=== PATIENT | female | born 1995 | race Asian ===

== ENCOUNTER 2016-08-31 12:39 | Emergency (ER) | payer MEDICAID ==
[~2016-08-31] VITALS: Ht 167.6 cm; Wt 65.9 kg
[~2016-08-31 12:39] MED LIST: AMOXICILLIN 50500 MG PO; FLEXERIL 1010 MG/TAB PO; MACROBID 1100 MG/CAP PO; MOTRIN 800800 MG/TAB PO; NORCO 325 MG-51 TAB PO; ULTRAM 50MG TAB50 MG PO; ZOFRAN ODT4 MG PO
[2016-08-31 12:40] VITALS: BP 100/81; PULSE 94; TEMP 97.8
== END 2016-08-31 13:08 | disposition home or self-care (01) ==
LOC: COL.ER 12:39
DX: M67.432 Ganglion, left wrist (principal)

== ENCOUNTER 2016-09-24 08:30 | Emergency (ER) | payer MEDICAID ==
[~2016-09-24] VITALS: Ht 160 cm; Wt 63.6 kg
[2016-09-24 08:39] VITALS: TEMP 98.2
[2016-09-24] MEDS ORDERED: MIRENA52 MG IY (08:42)
[2016-09-24] MEDS ORDERED: PHENERGAN 25 TA25 MG PO (08:58)
[2016-09-24] MEDS ORDERED: ULTRAM 50MG TAB50 MG PO (08:59)
[2016-09-24 09:16] LABS: BASO % 0.3 % (0.0-2.0); EOS # 0.2 (0.0-0.7); EOS % 1.8 % (0-4.0); GRAN # 8.1 (1.4-6.5); GRAN % 82.5 % (42.2-75.2); HEMATOCRIT 43.3 % (35.0-45.0); HEMOGLOBIN 14.7 g/dl (12.0-15.0); LYMPH % 10.1 % (20.0-51.0); MEAN CELL VOLUME 96 fl (80.0-95.0); MEAN CORPUSCULAR HEMOGLOBIN 33 pg (26.0-32.0); MEAN CORPUSCULAR HGB CONC 34 g/dl (33.0-37.0); MEAN PLATELET VOLUME 11.4 fl (7.4-10.4); MONO # 0.5 (0.1-0.6); PLATELET COUNT 236 K/mm3 (130-400); RED BLOOD COUNT 4.51 M/mm3 (4.10-5.30); REDCELL DISTRIBUTION WIDTH-CV 11.7 % (11.5-14.5); WHITE BLOOD COUNT 9.9 K/mm3 (4.8-10.8)
[2016-09-24 09:25] LABS: ALBUMIN 4.7 gm/dL (3.5-5.0); CALCIUM 9.6 mg/dL (8.4-10.2); CREATININE, serum 0.55 mg/dL (0.52-1.25); TOTAL PROTEIN 9.1 gm/dL (6.4-8.2)
[2016-09-24 09:55] VITALS: BP 106/64; PULSE 87
== END 2016-09-24 09:59 | disposition home or self-care (01) ==
LOC: COL.ER 08:30
PROVIDERS: Emergency Medicine
DX: R10.13 Epigastric pain (principal); R11.10 Vomiting, unspecified; J06.9 Acute upper respiratory infection, unspecified
CPT/HCPCS: C9113; J1170; J1885; J2765; J7030

== ENCOUNTER 2017-10-07 12:09 | Emergency (ER) | payer MEDICAID ==
[~2017-10-07] VITALS: Ht 160 cm; Wt 76.8 kg
[~2017-10-07 12:09] MED LIST changes: +MIRENA52 MG IY; +PHENERGAN 25 TA25 MG PO
[2017-10-07 12:21] VITALS: BP 124/76; TEMP 99.1
[2017-10-07] MEDS ORDERED: AMOXICILLIN 50500 MG PO (14:01)
[2017-10-07 14:13] VITALS: PULSE 88
== END 2017-10-07 14:16 | disposition home or self-care (01) ==
LOC: COL.ER 12:09
DX: J02.9 Acute pharyngitis, unspecified (principal); Z90.49 Acquired absence of other specified parts of digestive tract

== ENCOUNTER → 2018-01-05 | Emergency (ER) | payer MEDICAID ==
[~2018-01-05] VITALS: Ht 160 cm; Wt 76.4 kg
[2018-01-05 06:57] VITALS: BP 114/73
[2018-01-05 08:24] VITALS: PULSE 91; TEMP 99.7
== END ==
LOC: COL.ER 06:50
DX: G43.909 Migraine, unspecified, not intractable, without status migrainosus (principal); Z90.49 Acquired absence of other specified parts of digestive tract
CPT/HCPCS: J1200; J1885; J2550

== ENCOUNTER 2019-02-28 21:55 | Emergency (ER) | payer MEDICAID ==
[~2019-02-28] VITALS: Ht 160 cm; Wt 77.3 kg
[2019-02-28 21:59] VITALS: BP 118/74; TEMP 97.3
[2019-02-28 22:38] LABS: COLLECTION METHOD CLEAN CATCH
[2019-02-28 22:44] LABS: MUCOUS Present /lpf; PH 7 (5-8); URINE APPEARANCE Clear; URINE BACTERIA None Seen /hpf; URINE BILIRUBIN Negative (NEGATIVE); URINE BLOOD Negative (NEGATIVE); URINE COLOR Yellow; URINE GLUCOSE Negative (NEGATIVE); URINE KETONE Negative (NEGATIVE); URINE LEUKOCYTE ESTERASE Negative (NEGATIVE); URINE NITRATE Negative (NEGATIVE); URINE PROTEIN(semi-quant) Negative (NEGATIVE); URINE RBC 0-2 /hpf; URINE UROBILINOGEN Negative (NEGATIVE)
[2019-02-28 23:02] LABS: BASO % 0.5 % (0.0-2.0); EOS # 0.1 (0.0-0.7); EOS % 2.1 % (0-4.0); GRAN % 45.2 % (42.2-75.2); LYMPH # 2.9 (1.2-3.4); LYMPH % 43.8 % (20.0-51.0); MEAN CELL VOLUME 97 fl (80.0-100.0); MEAN CORPUSCULAR HEMOGLOBIN 33 pg (27.0-31.0); MEAN CORPUSCULAR HGB CONC 34 g/dl (33.0-37.0); MEAN PLATELET VOLUME 12.6 fl (7.4-10.4); MONO # 0.5 (0.1-0.6); MONO % 8.2 % (1.7-9.3); PLATELET COUNT 64 K/mm3 (130-400); RED BLOOD COUNT 3.66 M/mm3 (4.10-5.30); REDCELL DISTRIBUTION WIDTH-CV 11.7 % (11.5-14.5)
[2019-02-28 23:05] LABS: HEMATOCRIT 35.5 % (37.0-47.0)
[2019-02-28 23:15] LABS: ALBUMIN 3.9 gm/dL (3.5-5.0); BILIRUBIN,TOTAL 0.4 mg/dL (0.0-1.0); C-REACTIVE PROTEIN 0.6 mg/dL (0.0-0.9); CALCIUM 8.9 mg/dL (8.4-10.2); CREATININE, serum 0.55 (0.52-1.25); POTASSIUM 4.5 mmol/L (3.4-5.0); TOTAL PROTEIN 7.8 gm/dL (6.4-8.2)
[2019-03-01 00:25] VITALS: PULSE 77
== END 2019-03-01 00:25 | disposition home or self-care (01) ==
LOC: COL.ER 21:55
PROVIDERS: Family Medicine
DX: R10.84 Generalized abdominal pain (principal); Z90.49 Acquired absence of other specified parts of digestive tract
CPT/HCPCS: J1885; J2405; J7030

== ENCOUNTER 2019-06-07 21:19 | Emergency (ER) | payer MEDICAID ==
[~2019-06-07] VITALS: Ht 160 cm; Wt 77.3 kg
[2019-06-07 21:31] VITALS: TEMP 97.6
[2019-06-07 22:14] LABS: BASO % 0.4 % (0.0-2.0); EOS # 0.2 (0.0-0.7); GRAN # 5.6 (1.4-6.5); GRAN % 56.9 % (42.2-75.2); HEMATOCRIT 40.7 % (37.0-47.0); HEMOGLOBIN 13.8 g/dl (12.5-16.0); LYMPH # 3.2 (1.2-3.4); LYMPH % 33.2 % (20.0-51.0); MEAN CELL VOLUME 96 fl (80.0-100.0); MEAN CORPUSCULAR HEMOGLOBIN 33 pg (27.0-31.0); MEAN CORPUSCULAR HGB CONC 34 g/dl (33.0-37.0); MEAN PLATELET VOLUME 11.6 fl (7.4-10.4); MONO # 0.7 (0.1-0.6); MONO % 7.2 % (1.7-9.3); PLATELET COUNT 233 K/mm3 (130-400); RED BLOOD COUNT 4.22 M/mm3 (4.10-5.30); REDCELL DISTRIBUTION WIDTH-CV 11.8 % (11.5-14.5)
[2019-06-07 22:27] LABS: ALANINE AMINOTRANSFERASE 45 U/L (9-52); ALBUMIN 4.9 gm/dL (3.5-5.0); ALKALINE PHOSPHATASE 54 U/L (50-136); ANION GAP 13 mmol/L (7-16); AST,SGOT 34 U/L (15-37); BILIRUBIN,TOTAL 0.6 mg/dL (0.0-1.0); BLOOD UREA NITROGEN 14 mg/dL (7-17); CALCIUM 9.6 mg/dL (8.4-10.2); CARBON DIOXIDE 26 mmol/L (22-30); CHLORIDE 102 mmol/L (98-107); CREATININE, serum 0.55 (0.52-1.25); GLUCOSE 86 mg/dL (74-106); LIPASE 78 U/L (23-300); POTASSIUM 3.5 mmol/L (3.4-5.0); SODIUM 141 mmol/L (137-145); TOTAL PROTEIN 9.1 gm/dL (6.4-8.2)
[2019-06-07 22:28] LABS: C-REACTIVE PROTEIN < 0.5 mg/dL (0.0-0.9)
[2019-06-07 23:41] LABS: COLLECTION METHOD CLEAN CATCH
[2019-06-07 23:48] LABS: MUCOUS Present /lpf; PH 6 (5-8); SQUAMOUS EPITHELIAL 0-2 /hpf; URINE APPEARANCE Hazy; URINE BACTERIA None Seen /hpf; URINE BILIRUBIN Negative (NEGATIVE); URINE BLOOD Negative (NEGATIVE); URINE COLOR Yellow; URINE GLUCOSE Negative (NEGATIVE); URINE KETONE Negative (NEGATIVE); URINE LEUKOCYTE ESTERASE Negative (NEGATIVE); URINE NITRATE Negative (NEGATIVE); URINE PROTEIN(semi-quant) 1+ (NEGATIVE); URINE RBC 0-2 /hpf
[2019-06-08 04:19] VITALS: BP 134/84; PULSE 78
== END 2019-06-08 04:25 | disposition home or self-care (01) ==
LOC: COL.ER 21:19
PROVIDERS: Nurse Practitioner
DX: N83.202 Unspecified ovarian cyst, left side (principal); Z90.49 Acquired absence of other specified parts of digestive tract
CPT/HCPCS: J1170; J2405; J7030; Q9967

== ENCOUNTER 2019-06-11 01:23 | Emergency (ER) | payer MEDICAID ==
[~2019-06-11] VITALS: Ht 160 cm; Wt 77.3 kg
[2019-06-11 01:26] VITALS: TEMP 98.4
[2019-06-11 01:58] LABS: BASO % 0.4 % (0.0-2.0); EOS # 0.3 (0.0-0.7); EOS % 2.9 % (0-4.0); GRAN % 54.7 % (42.2-75.2); HEMATOCRIT 38.9 % (37.0-47.0); LYMPH # 3.1 (1.2-3.4); LYMPH % 33.2 % (20.0-51.0); MEAN CELL VOLUME 98 fl (80.0-100.0); MEAN CORPUSCULAR HEMOGLOBIN 33 pg (27.0-31.0); MEAN CORPUSCULAR HGB CONC 33 g/dl (33.0-37.0); MEAN PLATELET VOLUME 11.5 fl (7.4-10.4); MONO # 0.8 (0.1-0.6); MONO % 8.6 % (1.7-9.3); PLATELET COUNT 194 K/mm3 (130-400); RED BLOOD COUNT 3.98 M/mm3 (4.10-5.30); REDCELL DISTRIBUTION WIDTH-CV 11.8 % (11.5-14.5)
[2019-06-11 02:07] LABS: ALBUMIN 4.5 gm/dL (3.5-5.0); BILIRUBIN,TOTAL 0.4 mg/dL (0.0-1.0); CALCIUM 9.4 mg/dL (8.4-10.2); CREATININE, serum 0.55 (0.52-1.25); POTASSIUM 4.1 mmol/L (3.4-5.0); TOTAL PROTEIN 8.3 gm/dL (6.4-8.2)
[2019-06-11] MEDS ORDERED: ZOFRAN ODT4 MG PO (03:38)
[2019-06-11] MEDS ORDERED: PERCOCET 325 MG1 TA2 PO (03:38)
[2019-06-11 04:10] VITALS: BP 115/70; PULSE 85
== END 2019-06-11 04:10 | disposition home or self-care (01) ==
LOC: COL.ER 01:23
PROVIDERS: Physician Assistant
DX: N83.202 Unspecified ovarian cyst, left side (principal)
CPT/HCPCS: J2270; J2405; J7030

== ENCOUNTER 2019-06-12 11:36 | Day surgery (SDC) | payer MEDICAID ==
[~2019-06-12] VITALS: Ht 160 cm; Wt 80.2 kg
[2019-06-12] VITALS (9 sets, daily range): BP systolic 105–113; BP diastolic 61–75; PULSE 63–83; TEMP 98.4–98.6
[~2019-06-12 11:36] MED LIST changes: +PERCOCET 325 MG1 TA2 PO
--- NOTE | 2019-06-12 12:46 | NUR ---
RECEIVED SCOPOLAMINE PATCH AND PATIENT TAKEN TO SURGERY. OTHER PRE OP NOT GIVEN AND MARISSA SOL NOTIFIED.
--- NOTE | 2019-06-12 19:00 | NUR ---
Spoke with Dr. Turner for an update on pt's status. Orders for discharge home received with no work for 2 days and follow up in 2 weeks. Plan of care for discharge home with care instructions and follow up reviewed with pt and at the bedside. Both pt and verbalized an understanding, agree with the plan and state no questions or concerns at this time.
== END 2019-06-12 19:30 | disposition home or self-care (01) ==
LOC: SDCO 11:36
DX: N83.202 Unspecified ovarian cyst, left side (principal); R10.2 Pelvic and perineal pain; Z97.5 Presence of (intrauterine) contraceptive device; Z80.3 Family history of malignant neoplasm of breast; Z83.3 Family history of diabetes mellitus
CPT/HCPCS: J1885; J2405; J2550; J2704; J2710; J3010; J7120

== ENCOUNTER 2020-09-30 22:23 | Emergency (ER) | payer MEDICAID ==
[~2020-09-30] VITALS: Ht 160 cm; Wt 68.6 kg
[2020-09-30 22:30] VITALS: TEMP 97.6
[2020-09-30] MEDS ORDERED: MOTRIN 400400 MG/TAB PO (23:31)
[2020-09-30] MEDS ORDERED: CEPHALEXIN500 M1 PO (23:32)
[2020-09-30 23:39] VITALS: BP 109/73; PULSE 83
== END 2020-09-30 23:39 | disposition home or self-care (01) ==
LOC: COL.ER 22:23
DX: S91.201A Unspecified open wound of right great toe with damage to nail, initial encounter (principal); Z90.49 Acquired absence of other specified parts of digestive tract; W22.09XA Striking against other stationary object, initial encounter; Y93.41 Activity, dancing

== ENCOUNTER → 2021-11-28 | Outpatient (CLI) | payer MEDICAID ==
[~2021-11-28] MED LIST changes: +CEPHALEXIN500 M1 PO; +MOTRIN 400400 MG/TAB PO
== END ==
LOC: COL.RAD 11-11 08:15
DX: M51.37 Other intervertebral disc degeneration, lumbosacral region (principal); M51.36 Other intervertebral disc degeneration, lumbar region; M48.061 Spinal stenosis, lumbar region without neurogenic claudication